=== PATIENT | male | born 1945 | race Caucasian/White ===

== ENCOUNTER → 2016-11-20 | Outpatient (CLI) | payer MEDICARE ==
[~2016-11-20] MED LIST: ACET650T10 PO; CLON.1 PO; FISH1000 PO; HYDR-2952 PO; HYDR-3583 PO; LISI30TA4 PO; LISI30TA44 PO; LORT7.5T3 PO; MULTTAB67 PO; SIMV10TA PO; TAB-TAB PO; WARF7.5 PO; ZOLP5TAB3 PO; [UNRECOGNIZED DRUG - CODE] PO
[2016-11-20 13:29] LABS: BLOOD, URINE NEG (NEG); COMMENT (UR) CULT NOT INDICATED; CULTURE IF INDICATED CULT NOT INDICATED; GLUCOSE,URINE NEG (NEG); KETONE, URINE NEG (NEG); MUCUS URINE FEW /lpf (OCC); NITRITE,URINE NEG (NEG); URINE COLOR LIGHT-YELLOW (YELLW/STRAW)
[2016-11-20 13:29] LABS: AUTOMATED NEUTROPHIL # 6.7 TH/MM3 (1.8-7.7); BASOPHIL # 0.1 TH/MM3 (0-0.2); BASOPHIL % 1.3 % (0.0-2.0); EOSINOPHIL # 0.2 TH/MM3 (0-0.4); EOSINOPHIL % 1.8 % (0.0-4.0); HEMATOCRIT 43.9 % (39.0-51.0); HEMO FLAGS DIFF FINAL; LYMPH % 22.2 % (9.0-44.0); LYMPHOCYTE # 2.3 TH/MM3 (1.0-4.8); MEAN CELL VOLUME 90.3 FL (80.0-100.0); MEAN CORPUSCULAR HEMOGLOBIN 30.1 PG (27.0-34.0); MEAN CORPUSCULAR HGB CONC 33.3 % (32.0-36.0); MONO % 9.2 % (0.0-8.0); NEUT % 65.5 % (16.0-70.0); PLATELET COUNT 323 TH/MM3 (150-450); RED BLOOD COUNT 4.87 MIL/MM3 (4.50-5.90); RED CELL DISTRIBUTION WIDTH 12.8 % (11.6-17.2); WHITE BLOOD COUNT 10.2 TH/MM3 (4.0-11.0)
[2016-11-20 13:34] LABS: INTERNATIONAL NORMALIZED RATIO 0.9 RATIO
[2016-11-20 13:37] LABS: ALT (GPT) 29 U/L (12-78); ANION GAP 8 MEQ/L (5-15); AST (GOT) 16 U/L (15-37); BICARBONATE 29.5 MEQ/L (21.0-32.0); BLOOD UREA NITROGEN 11 MG/DL (7-18); CHLORIDE 105 MEQ/L (98-107); GLOMERULAR FILTRATION RATE 69 ML/MIN (>89); GLUCOSE,FASTING 82 MG/DL (74-99); POTASSIUM 4.5 MEQ/L (3.5-5.1); SODIUM (NA) 142 MEQ/L (136-145)
[2016-11-20 13:40] LABS: ALKALINE PHOSPHATASE 81 U/L (45-117); TOTAL BILIRUBIN ADULT 0.4 MG/DL (0.2-1.0)
== END ==
LOC: CPRE 11:44
PROVIDERS: ATTEND Neurological Surgery
DX: Z01.810 Encounter for preprocedural cardiovascular examination (principal); Z01.812 Encounter for preprocedural laboratory examination; Z01.811 Encounter for preprocedural respiratory examination; Z01.818 Encounter for other preprocedural examination; Z79.01 Long term (current) use of anticoagulants; Z79.899 Other long term (current) drug therapy; M48.02 Spinal stenosis, cervical region; M50.30 Other cervical disc degeneration, unspecified cervical region; M50.10 Cervical disc disorder with radiculopathy, unspecified cervical region
CPT/HCPCS: 36415; 80053; 81001; 85025; 85610; 85730

== ENCOUNTER 2016-11-25 06:11 | Observation (INO) | payer MEDICARE ==
--- NOTE | 2016-11-22 17:49 | MH ---
cc: ROBIN ANN M.D., VINOD K. MD LASTARZA, MARK W. M.D., PH.D DATE OF ADMISSION: 11/25/2016 ADMITTING DIAGNOSIS: Degenerative disc disease, cervical spine. HISTORY OF PRESENT ILLNESS: This is a 71-year-old male who presented to us for evaluation of neck pain and left upper extremity symptoms. He states in April of 2016 he had pain in the left shoulder that was radiating to the left biceps and associated paresthesias. The paresthesias went down into the left thumb. He saw a chiropractor in [place] which did not help and when he returned to [place] he saw a chiropractor here that he has seen before and he could not help either. He saw an orthopedic physician who obtained an MRI of the cervical spine and referred him to pain management. He states he had three injections; the first did not help and the last two helped. He states he followed up with Dr. Hines and he recommended surgical intervention. He has a friend who has had surgery undertaken by Dr. Ann and presented to us for a second opinion and is wanting to proceed with surgical intervention. He has noticed some left biceps weakness when he goes to the gym. He has had physical therapy and does the exercises on his own now. PAST MEDICAL HISTORY: His past medical history is significant for: 1. Hypertension. 2. Hyperlipidemia. 3. Hernia surgery in 2014. 4. A hip replacement in 2011. CURRENT MEDICATIONS: 1. He takes lisinopril 15 milligrams daily. 2. Simvastatin 10 milligrams daily. 3. Calcium daily. 4. A multivitamin daily. 5. Fish oil daily. ALLERGIES: HE HAS NO KNOWN DRUG ALLERGIES. FAMILY HISTORY: His mother is at 86 years old and had congestive heart disease. His father is at 81 years old and also had congestive heart disease. He has a brother who is alive at 76 years old. SOCIAL HISTORY He is . He worked as a agriculture consultant. He has children. He does not smoke. He quit smoking in 1974. He drinks alcohol approximately zero to two drinks a week. REVIEW OF SYSTEMS CONSTITUTIONAL: He denies any fever or chills. EARS, NOSE AND THROAT: No pharyngitis, exudates or bloody drainage from his nose. CARDIOVASCULAR: He denies any chest pain or palpitations. RESPIRATORY: No cough or shortness of breath. GENITOURINARY: No dysuria or hematuria. MUSCULOSKELETAL: Positive for neck pain. SKIN: No rashes or pruritus. NEUROLOGIC: No difficulty with speech or memory. GASTROINTESTINAL: No nausea or vomiting or abdominal pain. PSYCHIATRIC: No anxiety or depression symptoms. ENDOCRINE: No polyuria or polydipsia. HEMATOLOGIC: No bleeding tendencies but positive for bruising tendencies. PHYSICAL EXAMINATION HEAD: Normocephalic, atraumatic. NECK: Supple. No carotid bruits heard on auscultation. LUNGS: Clear to auscultation bilaterally. HEART: Regular rate and rhythm. Normal S1 and S2. ABDOMEN: Soft, nontender. Positive bowel sounds. SKIN: Reveals no cyanosis or erythema. MUSCULOSKELETAL: He has 5/5 strength in the upper and lower extremities. NEUROLOGIC: He is awake, alert and oriented. Cranial nerves II through XII are grossly intact. His speech is fluent. Comprehension is good. Sensation is diminished in the left thumb, otherwise intact in the upper and lower extremities. Reflexes are diminished in the upper extremities and they are 2+ in the lower extremities. DATA REVIEWED: We reviewed an MRI of the cervical spine from June 20, 2016 which reveals multilevel degenerative disc disease with a disc/ osteophyte complex most prominent at the C5-6 level with a left-sided significant foraminal stenosis. IMPRESSION: A 71-year-old male with a chronic history of neck pain with associated left C6 radiculopathy with weakness and numbness. He has noticed some improvement with physical therapy and interventional pain management. He has a C5-6 degenerative disc disease with disc / osteophyte complex and there is significant left-sided foraminal stenosis and nerve root impingement. PLAN: We have discussed the treatment options which include continued conservative measures versus surgical intervention. The patient states he wants to proceed with surgical intervention. He was therefore scheduled for a C5-C6 anterior discectomy with interbody fusion. The procedure as well as the risks, benefits and alternatives and recovery time were explained in great detail to the patient. We have discussed the risks involved with surgery which include but not limited to bleeding, infection, muscle weakness, voice hoarseness, difficulty swallowing, heart attack, stroke, blood clots, non-fusion among others. The patient states that he understands the procedure as well as the risks involved, and he is requesting that we proceed, and he was therefore scheduled accordingly. Dictated by Jared Guerrero PA-C MD MISAEL Millard/TADEO /5:20 PM /5:37 PM
[~2016-11-25] VITALS: Ht 172.7 cm; Wt 83.8 kg
[~2016-11-25 06:11] MED LIST changes: -ACET650T10 PO; -CLON.1 PO; -FISH1000 PO; -HYDR-2952 PO; -HYDR-3583 PO; -LISI30TA44 PO; -LORT7.5T3 PO; -TAB-TAB PO; -WARF7.5 PO; -[UNRECOGNIZED DRUG - CODE] PO
[2016-11-25] MEDS ORDERED: INSULIN HUMAN REGULAR 1,000 UNITS/10 ML VIAL SQ PRN (06:45)
[2016-11-25] MEDS ORDERED: VANCOMYCIN HCL 1000 MG ON-CALL/NS 250 ML IV SCH ×2 (06:45)
[2016-11-25] MEDS ORDERED: SODIUM CHLOR 0.9% 1000 ML INJ 1,000 ML IV SCH (06:45)
[2016-11-25] MEDS ORDERED: CHLORHEXIDINE GLUCONATE 2 % 1 PACK (2 CLOTHS) TOP ONE (06:45)
[2016-11-25] MEDS ORDERED: METOPROLOL TARTRATE 25 MG TAB PO PRN (06:45)
[2016-11-25] MEDS ORDERED: SODIUM CHLORID 0.9% 500 ML IV SCH (06:45)
[2016-11-25] MEDS ORDERED: POVIDONE IODINE 5% (ANTISEPSIS KIT) 4 APPLICATIONS TOPICAL ONE (06:45)
[2016-11-25] MEDS ORDERED: LACTATED RINGER'S 1000 ML IV SCH (06:45)
[2016-11-25 06:53] VITALS: BP 177/101; PULSE 83; RESP 18; TEMP 97.6; O2SAT 95
[2016-11-25] MEDS ORDERED: VANCOMYCIN HCL 1000 MG VIAL ONE (07:02)
[2016-11-25] MEDS ORDERED: THROMBIN (TOPICAL) 5,000 UNIT VIAL ONE (07:02)
[2016-11-25] MEDS ORDERED: GELFOAM SIZE 100 ONE (07:03)
[2016-11-25] MEDS ORDERED: BUPIVACAINE/EPINEPHRINE 0.5% PF 30 ML VIAL ONE (07:03)
[2016-11-25] MEDS ORDERED: ACETAMINOPHEN 1000 MG/100 ML VIAL IV ONE (07:27)
[2016-11-25] MEDS ORDERED: ARTIFICIAL TEARS OPTH OINT 3.5 APPLIC/3.5 GM TUBO ONE (07:28)
[2016-11-25] MEDS ORDERED: MIDAZOLAM HCL 2 MG/2 ML VIAL ONE ×2 (07:28→07:44)
[2016-11-25] MEDS ORDERED: FAMOTIDINE 20 MG/2 ML VIAL ONE ×2 (07:28→07:44)
[2016-11-25] MEDS ORDERED: fentaNYL CITRATE 250 MCG/5 ML AMP ONE (08:16)
[2016-11-25] MEDS ORDERED: VANCOMYCIN 500 MG VIAL IRRIGATION ONE (09:25)
[2016-11-25] MEDS ORDERED: DO NOT ADM ANY ANTICOAGULANT DRUGS XX PRN (11:04)
--- NOTE | 2016-11-25 11:17 | PD.OP ---
MD Inocencio Hernandez MD Operative Report Date of Surgery: Nov 25, 2016 Preoperative Diagnosis: Cervical C5-6 degenerative disc disease with disc osteophyte complex and the spinal/foraminal stenosis; intractable low back pain with a left C6 radiculopathy Postoperative Diagnosis: Same Procedure: Anterior cervical C5-6 microdiscectomy with foraminotomy and interbody fusion; anterior C5-6 cervical plate placement; C5-6 interbody cage placement microsurgical technique; Anesthesia: Gen. endotracheal by Jordyn Juarez Surgeon: Amandeep Thurston M.D. Acidizer Water Well(s): Juan Palomares Operation and Findings: Following administration of general endotracheal anesthesia, the patient received a gram of vancomycin and Decadron 10 mg intravenously. Sequential compression devices were placed in supine position on a Conrad table and all pressure points adequately padded. The head secured in a donut and anterior cervical region then shaved and prepped with Chloraprep and sterilely draped with Ioban along with the usual sterile draping. A transverse skin incision on the left side of the neck was then made after infiltrating the skin with 0.5% Marcaine with epinephrine solution extending down through the platysma. At the anterior border of the sternocleidomastoid further dissection was undertaken developing a plane between the carotid sheath laterally and the trachea esophagus medially. The prevertebral fascia was exposed and dissected out. The medial attachments of the longus colli muscles were detached and a self- retaining retractor used for exposure. The C5-6 disc space was localized with a marking the disc space and using lateral fluoroscopy. Preston distraction screws 14 mm length were placed one in the C5 and one in the C6 body interbody distraction and exposure. There was significant disc degeneration with disc height collapse and anterior osteophytes noted at the C5-6 level and the osteophytes were resected with a Leksell and annulus incised with a 15 blade and further dissection undertaken using microtechnique with microscope magnification. Diskectomy was undertaken with pituitaries and the endplates were also decorticated with curettes and drill bit. And more posteriorly there was disk osteophyte complex compressing the thecal sac along with a significant uncovertebral joint hypertrophy with foraminal stenosis particularly left side which was decompressed along with removal of the posterior longitudinal ligaments at both levels. The foramen was decompressed bilaterally using a Kerrison's and palpation with a nerve hook, the exiting nerve roots were felt to be free. The area was then copiously irrigated. I then placed a Peek cage packed with local autograft bone at the C5-6 interspace under fluoroscopy guidance. Preston distraction pins were removed and the holes plugged with Gelfoam for hemostasis. In order to facilitate the fusion and provide stabilization, a Precision spine cervical plate was then placed with two 14 mm variable angle screws in the C5 body and two 14 mm fixed angle screws in the C6 body. The plate screw locking mechanism was then engaged. AP and lateral fluoroscopy confirmed good placement of the construct and the retractor was then removed. Muscular bleeding points were cauterized with bipolar cautery and Gelfoam was then also used for hemostasis which was removed. The platysma was then approximated using 3-0 Vicryl interrupted stitches and 3-0 Vicryl subcuticular stitch also placed in an interrupted fashion, and final skin closure was with Mastisol and Steri-Strips. Sterile dressing was then applied. The patient was then extubated and taken to the recovery room. There are no intraoperative complications and all sponge and needle counts were correct at the end of procedure. Estimated blood loss was about 100 cc. The patient did undergo intraoperative neurologic monitoring which remained stable throughout the surgery. Amandeep Thurston MD Nov 25, 2016 11:17
[2016-11-25] MEDS ORDERED: NS + KCL 20 MEQ INJ 1,000 ML IV SCH (11:18)
[2016-11-25] MEDS ORDERED: SODIUM CHLORIDE 0.9% FLUSH 5 ML FLUSH IVF PRN (11:30)
[2016-11-25] MEDS ORDERED: BISACODYL 10 MG SUPP PR PRN (11:30)
[2016-11-25] MEDS ORDERED: ACETAMINOPHEN 325 MG TAB PO PRN (11:30)
[2016-11-25] MEDS ORDERED: RESP: ALBUTEROL 2.5 MG/3 ML NEB (PRN) NEB (11:30)
[2016-11-25] MEDS ORDERED: ALUMINUM/MAGNESIUM/SIMETH 30 ML CUP PO PRN (11:30)
[2016-11-25] MEDS ORDERED: ACETAMINOPHEN/HYDROcodone 325 MG/10 MG TAB PO PRN (11:30)
[2016-11-25] MEDS ORDERED: MORPHINE SULFATE 4 MG/ML INJ IV PRN (11:30)
[2016-11-25] MEDS ORDERED: ONDANSETRON HCL 4 MG/2 ML VIAL IV PRN (11:30)
[2016-11-25] MEDS ORDERED: ZOLPIDEM TARTRATE 5 MG TAB PO PRN ×2 (11:30)
[2016-11-25] MEDS ORDERED: MAGNESIUM HYDROXIDE SUSP 30 ML CUP PO PRN (11:30)
[2016-11-25] MEDS ORDERED: MENTHOL LOZENGE SUCK-ON PRN (11:30)
[2016-11-25] MEDS ORDERED: PILL SPLITTER OTHER PRN (11:45)
[2016-11-25] MEDS ORDERED: NEOSTIGMINE 3 MG/3 ML SYR IV ONE (12:00)
[2016-11-25] MEDS ORDERED: PHENYLEPH/NS 1000 MCG/10 ML SYR IV ONE (12:00)
[2016-11-25] MEDS ORDERED: ONDANSETRON HCL 4 MG/2 ML VIAL IV PUSH ONE (12:00)
[2016-11-25] MEDS ORDERED: DEXAMETHASONE SOD PHOS 4 MG/ML VIAL IV SCH (12:00)
[2016-11-25] MEDS ORDERED: ePHEDrine/NS 25 MG/5 ML SYR IV ONE (12:00)
[2016-11-25] MEDS ORDERED: PROPOFOL 200 MG/20 ML AMP IV ONE (12:00)
[2016-11-25] MEDS ORDERED: LACTATED RINGER'S 1000 ML INJ 1,000 ML IV ONE (12:00)
[2016-11-25] MEDS ORDERED: *morphine SULFATE 8 MG/ML PERIprocedure ONLY ONE (12:07)
[2016-11-25 13:50] VITALS: BP 158/99; PULSE 89; RESP 15; TEMP 95.4; O2SAT 97
[2016-11-25] MEDS: DEXAMETHASONE SOD PHOS 4 MG/ML VIAL IV SCH ×2 (14:25→20:54)
[2016-11-25] MEDS: ACETAMINOPHEN/HYDROcodone 325 MG/10 MG TAB PO PRN ×2 (14:25→22:52)
--- NOTE | 2016-11-25 15:53 | RADRPT ---
EXAM DATE/TIME: 11/25/2016 08:45 [facility] COMPARISON: No previous studies available for comparison. INDICATIONS : Post-op C5-C5 anterior cervical fusion. MEDICAL HISTORY : None. SURGICAL HISTORY : None. ENCOUNTER: Initial ACUITY: 1 day PAIN SCORE: Non-responsive. LOCATION: neck FINDINGS: Two projection intraoperative examination was performed. There is anterior fixation of C5-6 with an intervertebral disc prostheses. Prominent anterior spurs are seen at C2-3 and C3-4. No acute fracture . CONCLUSION: 1. Anterior fixation at C5-6 with intervertebral disc prostheses. 2. Prominent anterior spur particularly at C2-3. No acute fracture. Preet Colunga MD on November 25, 2016 at 15:50 Board Certified Radiologist. This report was verified electronically.
--- NOTE | 2016-11-25 15:54 | RADRPT ---
EXAM DATE/TIME: 11/25/2016 08:45 [facility] COMPARISON: No previous studies available for comparison. INDICATIONS : C5-C5 anterior cervical fusion. Level localization. MEDICAL HISTORY : None. SURGICAL HISTORY : None. ENCOUNTER: Initial ACUITY: 1 day PAIN SCORE: Non-responsive. LOCATION: neck FINDINGS: A single lateral view of the cervical spine was performed. Metallic marker is positioned just anterio r to the C5-6 disc interspace.. CONCLUSION: Metallic marker anterior to C5-6. Preet Colunga MD on November 25, 2016 at 15:51 Board Certified Radiologist. This report was verified electronically.
[2016-11-25 16:00] VITALS: BP 168/98; PULSE 87; RESP 16; TEMP 95.5; O2SAT 94
[2016-11-25 19:47] VITALS: O2SAT 96
[2016-11-25 20:23] VITALS: BP 186/106; PULSE 93; RESP 20; TEMP 96.1; O2SAT 93
[2016-11-25] MEDS: DOCUSATE SODIUM 100 MG CAP PO SCH (20:54)
[2016-11-25] MEDS: SODIUM CHLORIDE 0.9% FLUSH 5 ML FLUSH IVF SCH (20:55)
[2016-11-25] MEDS: LISINOPRIL 5 MG TAB PO SCH (20:55)
[2016-11-25] MEDS: FAMOTIDINE 20 MG TAB PO SCH (20:55)
[2016-11-25] MEDS ORDERED: PRAVASTATIN SOD 20 MG TAB PO SCH (21:00)
[2016-11-26 00:30] VITALS: BP 177/92; PULSE 90; RESP 21; TEMP 96.5; O2SAT 95
[2016-11-26] MEDS: DEXAMETHASONE SOD PHOS 4 MG/ML VIAL IV SCH (03:56)
[2016-11-26 04:17] VITALS: BP 176/102; PULSE 95; RESP 22; TEMP 96.9; O2SAT 96
[2016-11-26] MEDS: cloNIDine HCL 0.1 MG TAB PO PRN ×2 (04:42→09:47)
[2016-11-26 08:18] VITALS: BP 173/85; PULSE 96; RESP 18; TEMP 96.4; O2SAT 94
[2016-11-26 08:53] VITALS: O2SAT 96
[2016-11-26] MEDS ORDERED: MULTIVITAMIN TAB PO SCH (09:00)
[2016-11-26] MEDS: ACETAMINOPHEN/HYDROcodone 325 MG/10 MG TAB PO PRN (09:45)
[2016-11-26] MEDS: FAMOTIDINE 20 MG TAB PO SCH (09:46)
[2016-11-26] MEDS: LISINOPRIL 5 MG TAB PO SCH (09:47)
[2016-11-26] MEDS: DOCUSATE SODIUM 100 MG CAP PO SCH (09:47)
[2016-11-26] MEDS: SODIUM CHLORIDE 0.9% FLUSH 5 ML FLUSH IVF SCH (09:49)
--- NOTE | 2016-11-26 10:13 | HHI.NSPN ---
(Jared Guerrero) History Chief Complaint: mild sore throat s/[p C5/C6 ACF (Jared Guerrero) Interval History 11/26/16: Pt s/p C5/C6 anterior cervical fusion on 11/25/16. Mild sore throat but able to eat breakfast. No radiculopathy in UEs. Mild numbness left thumb stable. Ambulating and voiding well. (Jared Guerrero) Review of Systems General: Negative for: fever, chills, insomnia Respiratory: Negative for: shortness of breath, cough, sputum Cardiovascular: Negative for: chest pain Gastrointestinal: Negative for: nausea, vomitting, diarrhea, constipation ( Jared Guerrero) Exam Results Vital Signs Date Time Temp Pulse Resp B/P Pulse Ox O2 Delivery O2 Flow Rate FiO2 11/26/16 08:53 96 21 11/26/16 08:18 96.4 96 18 173/85 11/25/16 12:30 Nasal Cannula 2 Intake and Output 11/25/16 11/25/16 11/26/16 08:00 16:00 00:00 Intake Total 1940 ml 240 ml Output Total 440 ml Balance 1500 ml 240 ml (Jared Guerrero) Physical Examination Resp: CTA bilaterally Heart: NSR no murmurs Abd: Soft positive bs skin: Incision clean and dry. New bandage placed. Muscle: Moves all 4 extremities well. Ambulating well. Neuro: Pt awake and alert. Follows commands well. Speech clear and appropriate. (Jared Guerrero) Lab, Micro, Other Results 11/25/16 11/25/16 11/26/16 15:00 23:00 07:00 Intake Total 1940 ml 240 ml 240 ml Output Total 440 ml Balance 1500 ml 240 ml 240 ml Intake Oral 240 ml 240 ml 240 ml Other 1700 ml Output Urine Total 340 ml Estimated Blood Loss 100 ml # Voids 1 3 3 # Bowel Movements 0 0 (Jared Guerrero) Medical Decision Making Impression and Plan A: 71 y/o M s/p C5/C6 anterior cervical fusion with plate placement. P: Blood pressure control and discharge if stable. Follow up as directed. (Jared Guerrero) Attending Statement The exam, history, and the medical decision-making described in the above note were completed with the assistance of the mid-level provider. I reviewed and agree with the findings presented. I attest that I had a [id number] encounter with the patient on the same day, and personally performed and documented my assessment and findings in the medical record. (Amandeep Thurston MD) Jared Guerrero Nov 26, 2016 10:13 Amandeep Thurston MD Nov 26, 2016 17:06
[2016-11-26 12:28] VITALS: BP 158/91; PULSE 88; RESP 16; TEMP 98.4; O2SAT 96
[2016-11-26] MEDS ORDERED: HYDR-3583 PO (12:56)
[2016-11-26] MEDS ORDERED: CLON.1 PO (12:56)
[2016-11-27 07:30] VITALS: BP 162/92; PULSE 80; RESP 20; TEMP 98.8; O2SAT 96
== END 2016-11-26 14:22 | disposition home or self-care (01) ==
LOC: HSDC 06:11 → HSDI 11:23 → N06A 13:11
PROVIDERS: ADMIT Neurological Surgery; ATTEND Neurological Surgery
DX: M50.122 Cervical disc disorder at C5-C6 level with radiculopathy (principal); M48.02 Spinal stenosis, cervical region; M54.5 Low back pain
CPT/HCPCS: 00600; 20936; 22551; 22845; 22854; 72020; 72040; 76000; 94150; C1713; G0378; J0131; J0690; J1100; J2250; J2270; J2370; J2405; J2710; J3010; J3370; J3480; J7120